=== PATIENT | female | born 1945 | race African-American/Black ===

== ENCOUNTER 2022-10-16 15:17 | Inpatient (IN) | payer MEDICARE, MEDICAID ==
[~2022-10-16] VITALS: Ht 160 cm; Wt 81.2 kg
[2022-10-16 16:26] LABS: CHLORIDE 109 mEq/L (98-107)
[2022-10-16 16:30] LABS: BASOPHILS % 0.5 % (0.0-2.0); EOSINOPHILS % 2.4 % (0.0-5.0); HEMATOCRIT. 43.3 % (36.0-48.0); HEMOGLOBIN. 14.6 g/dL (12.0-16.0); LYMPHOCYTES % 29.3 % (20.0-50.0); MEAN CORPUSCULAR VOLUME 100.8 fL (81.0-99.0); MEAN PLATELET VOLUME 7.8 fl (7.4-10.4); MONOCYTES % 10.8 % (2.0-8.0); PLATELET 329 x1000/uL (130-400); RED BLOOD CELL COUNT 4.29 mill/uL (4.2-5.4); RED CELL DISTRIBUTION WIDTH 12.7 % (11.6-14.6)
[2022-10-16] MEDS ORDERED: ASPIRIN 81MG EC TABLET PO ONE (16:30)
[2022-10-16] MEDS ORDERED: ONDANSETRON 4MG ODT PO ONE (19:15)
[2022-10-16] MEDS ORDERED: AMLODIPINE 5MG TABLET PO ONE (21:00)
[2022-10-16] MEDS ORDERED: VERAPAMIL HCL 40MG TABLET PO SCH ×2 (21:00→21:30)
[2022-10-16] MEDS ORDERED: GUAIFENESIN 200MG/10ML SUGAR FREE UDC PO PRN (22:00)
[2022-10-16] MEDS ORDERED: NITROGLYCERIN 0.4MG TABLET SL SL PRN (22:00)
[2022-10-16] MEDS ORDERED: CLONIDINE 0.1MG TABLET PO PRN (22:00)
[2022-10-16] MEDS ORDERED: MAGNESIUM/ALUMINUM HYDROXIDE/SIMETHICONE 30ML UDC PO PRN (22:00)
[2022-10-16] MEDS ORDERED: IPRATROPIUM/ALBUTEROL 0.5-3(2.5)MG/3ML NEB HHN PRN (22:00)
[2022-10-16] MEDS ORDERED: DIPHENHYDRAMINE 50MG/ML VIAL IV PRN (22:00)
[2022-10-16] MEDS ORDERED: ONDANSETRON HCL 4MG/2ML INJ IV PRN (22:00)
[2022-10-16] MEDS ORDERED: DOCUSATE SODIUM 100MG CAPSULE PO PRN (22:00)
[2022-10-17] VITALS (7 sets, daily range): BP systolic 133–172; BP diastolic 70–81
[2022-10-17] MEDS: HYDROCODONE/ACETAMINOPHEN 5/325MG TABLET PO PRN ×2 (00:25→12:40)
[2022-10-17 00:39] LABS: CREATINE KINASE 74 IU/L (26-192); CREATINE KINASE MB FRACTION < 1.0 ng/mL (0.5-3.6); T4 FREE 1.14 ng/dL (0.76-1.46)
[2022-10-17] MEDS ORDERED: ALBUTEROL (0.083%) 2.5MG/3ML NEB HHN PRN ×2 (03:45)
[2022-10-17] MEDS ORDERED: IPRATROPIUM BROMIDE (0.02%) 0.5MG/2.5ML NEB HHN PRN ×2 (03:45)
[2022-10-17 07:15] LABS: BASOPHILS % 0.4 % (0.0-2.0); EOSINOPHILS % 2.4 % (0.0-5.0); HEMATOCRIT. 39.8 % (36.0-48.0); LYMPHOCYTES % 32.4 % (20.0-50.0); MEAN CORPUSCULAR HEMOGLOBIN 36.1 pg (28.0-32.0); MEAN CORPUSCULAR VOLUME 102.5 fL (81.0-99.0); MONOCYTES % 10.2 % (2.0-8.0); NEUTROPHILS % 54.6 % (40.0-76.0); RED BLOOD CELL COUNT 3.88 mill/uL (4.2-5.4); RED CELL DISTRIBUTION WIDTH 12.7 % (11.6-14.6)
[2022-10-17 08:36] LABS: PLATELET 263 x1000/uL (130-400)
[2022-10-17] MEDS ORDERED: ASPIRIN 81MG EC TABLET PO SCH (09:00)
[2022-10-17] MEDS: FAMOTIDINE 20MG TABLET PO SCH ×2 (10:11→20:22)
[2022-10-17] MEDS: ASPIRIN 81MG TABLET PO SCH (10:11)
[2022-10-17] MEDS: AMLODIPINE 10MG TABLET PO SCH (10:12)
[2022-10-17] MEDS: ENOXAPARIN 40MG/0.4ML SYR SUBCUT SCH (10:13)
[2022-10-17] MEDS: LOSARTAN POTASSIUM 25 MG TABLET PO SCH (10:16)
[2022-10-17] MEDS: ACETAMINOPHEN 325MG TABLET PO PRN ×2 (10:16→20:22)
[2022-10-17 10:40] LABS: CHLORIDE 108 mEq/L (98-107)
[2022-10-17 11:12] LABS: CREATINE KINASE 62 IU/L (26-192); CREATINE KINASE MB FRACTION < 1.0 ng/mL (0.5-3.6); HDL CHOLESTEROL 42 mg/dL (40-59); LDL CHOLESTEROL 127 mg/dL (5-100)
[2022-10-17] MEDS ORDERED: METOPROLOL TARTRATE 25MG TABLET PO NR (12:30)
[2022-10-17] MEDS ORDERED: LIDOCAINE HCL 1% 10 MG/ML 10ML VIAL ONE (12:54)
[2022-10-17] MEDS ORDERED: METOPROLOL TARTRATE 5MG/5ML VIAL IV ONE ×2 (14:13→14:15)
[2022-10-17] MEDS ORDERED: LORAZEPAM 2MG/ML CPJ IV NR (14:15)
[2022-10-17] MEDS ORDERED: NITROGLYCERIN SPRAY/4.9GM CAN TL SCH (14:15)
[2022-10-17] MEDS ORDERED: METOPROLOL TARTRATE 5MG/5ML VIAL IV NR (14:30)
[2022-10-17] MEDS ORDERED: IOHEXOL-350 100 ML BOTTLE ONE (14:39)
[2022-10-17] MEDS ORDERED: NALOXONE HCL 0.4MG/ML VIAL IV PRN (18:30)
[2022-10-17] MEDS: CARVEDILOL 3.125 MG TABLET PO SCH (20:26)
[2022-10-18] VITALS: BP_SYST 107; BP_SYST 124; BP_DIAS 62; BP_DIAS 76
[2022-10-18 04:00] VITALS: BP_SYST 120
[2022-10-18] MEDS: ACETAMINOPHEN 325MG TABLET PO PRN ×2 (05:53→21:16)
[2022-10-18 06:42] LABS: BASOPHILS % 0.4 % (0.0-2.0); EOSINOPHILS % 2.1 % (0.0-5.0); HEMATOCRIT. 39.1 % (36.0-48.0); HEMOGLOBIN. 13.2 g/dL (12.0-16.0); LYMPHOCYTES % 30.4 % (20.0-50.0); MEAN CORPUSCULAR HEMOGLOBIN 34.1 pg (28.0-32.0); MEAN CORPUSCULAR VOLUME 101.3 fL (81.0-99.0); MEAN PLATELET VOLUME 7.7 fl (7.4-10.4); MONOCYTES % 10.5 % (2.0-8.0); NEUTROPHILS % 56.6 % (40.0-76.0); PLATELET 272 x1000/uL (130-400); RED BLOOD CELL COUNT 3.86 mill/uL (4.2-5.4); RED CELL DISTRIBUTION WIDTH 12.6 % (11.6-14.6)
[2022-10-18 08:00] VITALS: BP 153/74
[2022-10-18 08:07] LABS: CHLORIDE 106 mEq/L (98-107)
[2022-10-18] MEDS ORDERED: LIDOCAINE HCL/PF 1% 10 MG/ML 5ML VIAL ONE (08:28)
[2022-10-18] MEDS ORDERED: HEPARIN 1000 UNITS/ML 10ML ONE (08:28)
[2022-10-18] MEDS ORDERED: IODIXANOL 320MG/ML 100 ML BOTTLE IV ONE (08:28)
[2022-10-18] MEDS ORDERED: DIPHENHYDRAMINE 50MG/ML VIAL ONE (08:51)
[2022-10-18] MEDS ORDERED: VERAPAMIL HCL 2.5 MG/1 ML 2ML VIAL IV ONE (08:51)
[2022-10-18] MEDS ORDERED: FENTANYL CITRATE/PF 50MCG/ML 2ML VIAL ONE (08:51)
[2022-10-18] MEDS ORDERED: MIDAZOLAM HCL 2 MG/2 ML VIAL ONE ×2 (08:51→09:16)
[2022-10-18] MEDS: ASPIRIN 81MG TABLET PO SCH (09:00)
[2022-10-18] MEDS: ENOXAPARIN 40MG/0.4ML SYR SUBCUT SCH (09:00)
[2022-10-18] MEDS ORDERED: CLOPIDOGREL 75MG TABLET ONE (09:41)
[2022-10-18] MEDS ORDERED: ASPIRIN 325MG EC TABLET PO ONE (09:41)
[2022-10-18] MEDS ORDERED: ATROPINE SULFATE 1MG/10ML SYR IV PRN (10:00)
[2022-10-18] MEDS ORDERED: ACETAMINOPHEN 325MG TABLET PO PRN (10:00)
[2022-10-18] MEDS ORDERED: SODIUM CHLORIDE 0.45% 500 ML IV ONE (10:00)
[2022-10-18 12:00] VITALS: BP 151/81
[2022-10-18] MEDS: LOSARTAN POTASSIUM 25 MG TABLET PO SCH (14:16)
[2022-10-18] MEDS: FAMOTIDINE 20MG TABLET PO SCH ×2 (14:16→20:59)
[2022-10-18] MEDS: AMLODIPINE 10MG TABLET PO SCH (14:16)
[2022-10-18] MEDS: CARVEDILOL 3.125 MG TABLET PO SCH ×2 (14:16→20:59)
[2022-10-18] MEDS: HYDROCODONE/ACETAMINOPHEN 5/325MG TABLET PO PRN (15:33)
[2022-10-18 16:00] VITALS: BP 145/86
[2022-10-18] MEDS ORDERED: GABA-532 PO (16:09)
[2022-10-18] MEDS: GABAPENTIN 100MG CAPSULE PO SCH (17:27)
[2022-10-18 20:00] VITALS: BP 169/77
[2022-10-18] MEDS: ATORVASTATIN CALCIUM 20MG TABLET PO SCH (20:59)
[2022-10-18] MEDS: GABAPENTIN 300MG CAPSULE PO SCH (20:59)
[2022-10-19] VITALS: BP 144/70
[2022-10-19 04:00] VITALS: BP 124/65
[2022-10-19 07:14] LABS: BASOPHILS % 0.4 % (0.0-2.0); EOSINOPHILS % 1.9 % (0.0-5.0); HEMATOCRIT. 38.2 % (36.0-48.0); HEMOGLOBIN. 12.7 g/dL (12.0-16.0); LYMPHOCYTES % 21.8 % (20.0-50.0); MEAN CORPUSCULAR HEMOGLOBIN 33.6 pg (28.0-32.0); MEAN CORPUSCULAR VOLUME 101.2 fL (81.0-99.0); MEAN PLATELET VOLUME 7.6 fl (7.4-10.4); MONOCYTES % 11.5 % (2.0-8.0); NEUTROPHILS % 64.4 % (40.0-76.0); PLATELET 274 x1000/uL (130-400); RED BLOOD CELL COUNT 3.77 mill/uL (4.2-5.4); RED CELL DISTRIBUTION WIDTH 12.5 % (11.6-14.6)
[2022-10-19 07:35] LABS: CHLORIDE 106 mEq/L (98-107)
[2022-10-19 07:43] LABS: PHOSPHORUS 3.2 mg/dL (2.5-4.9)
[2022-10-19 07:58] VITALS: BP 130/76
[2022-10-19] MEDS ORDERED: ASPIRIN 81MG TABLET PO SCH (09:00)
[2022-10-19] MEDS: LOSARTAN POTASSIUM 25 MG TABLET PO SCH (09:45)
[2022-10-19] MEDS: AMLODIPINE 10MG TABLET PO SCH (09:45)
[2022-10-19] MEDS: GABAPENTIN 100MG CAPSULE PO SCH ×2 (09:45→17:58)
[2022-10-19] MEDS: FAMOTIDINE 20MG TABLET PO SCH ×2 (09:45→21:56)
[2022-10-19] MEDS: CLOPIDOGREL 75MG TABLET PO SCH (09:45)
[2022-10-19] MEDS: ASPIRIN 81MG TABLET PO SCH (09:45)
[2022-10-19] MEDS: CARVEDILOL 3.125 MG TABLET PO SCH ×2 (09:45→21:56)
[2022-10-19] MEDS ORDERED: COR3 PO (11:21)
[2022-10-19] MEDS ORDERED: CLOP75TA15 PO (11:21)
[2022-10-19] MEDS ORDERED: ASPI-1160 PO (11:21)
[2022-10-19] MEDS ORDERED: GABA-532 PO (11:21)
[2022-10-19] MEDS ORDERED: AMLO10TA80 PO (11:21)
[2022-10-19] MEDS ORDERED: LOSA25TA3 PO (11:21)
[2022-10-19] MEDS ORDERED: ATOR20TA PO (11:21)
[2022-10-19 12:00] VITALS: BP 153/80
[2022-10-19] MEDS: ACETAMINOPHEN 325MG TABLET PO PRN ×2 (12:50→21:55)
[2022-10-19 16:00] VITALS: BP 136/83
[2022-10-19 20:00] VITALS: BP 137/83
[2022-10-19] MEDS ORDERED: HYDROXYZINE 25MG TABLET PO PRN (21:30)
[2022-10-19] MEDS: GABAPENTIN 300MG CAPSULE PO SCH (21:56)
[2022-10-19] MEDS: ATORVASTATIN CALCIUM 20MG TABLET PO SCH (21:57)
[2022-10-20] VITALS: BP 138/76
[2022-10-20 04:00] VITALS: BP 109/63
[2022-10-20 08:00] VITALS: BP 170/79
[2022-10-20] MEDS: CLOPIDOGREL 75MG TABLET PO SCH (08:08)
[2022-10-20] MEDS: AMLODIPINE 10MG TABLET PO SCH (08:09)
[2022-10-20] MEDS: GABAPENTIN 100MG CAPSULE PO SCH ×2 (08:09→17:57)
[2022-10-20] MEDS: CARVEDILOL 3.125 MG TABLET PO SCH (08:09)
[2022-10-20] MEDS: ASPIRIN 81MG TABLET PO SCH (08:09)
[2022-10-20] MEDS: FAMOTIDINE 20MG TABLET PO SCH (08:09)
[2022-10-20] MEDS: LOSARTAN POTASSIUM 25 MG TABLET PO SCH (08:09)
[2022-10-20 12:00] VITALS: BP 144/78
[2022-10-20 13:15] VITALS: BP 144/78
[2022-10-20 16:00] VITALS: BP 135/84
[2022-10-20] MEDS: ACETAMINOPHEN 325MG TABLET PO PRN (16:54)
== END 2022-10-20 18:35 | disposition home health service (06) | DRG 246 ==
LOC: ER 15:17 → MICUSO 20:50 → EDBEDREQTM 20:55 → EDBEDREQ 20:55 → SUPCPDRO 21:27 → 7EST 10-17 03:28 → 3WST 10-18 10:13
PROVIDERS: ADMIT Internal Medicine; ATTEND Internal Medicine
PROC: 02HV33Z Insertion of Infusion Device into Superior Vena Cava, Percutaneous Approach (ICD-10-PCS; 2022-10-17)
PROC: B548ZZA Ultrasonography of Superior Vena Cava, Guidance (ICD-10-PCS; 2022-10-17)
PROC: B5181ZA Fluoroscopy of Superior Vena Cava using Low Osmolar Contrast, Guidance (ICD-10-PCS; 2022-10-17)
PROC: 027035Z Dilation of Coronary Artery, One Artery with Two Drug-eluting Intraluminal Devices, Percutaneous Approach (ICD-10-PCS; principal; 2022-10-18)
PROC: 4A023N7 Measurement of Cardiac Sampling and Pressure, Left Heart, Percutaneous Approach (ICD-10-PCS; 2022-10-18)
PROC: B211YZZ Fluoroscopy of Multiple Coronary Arteries using Other Contrast (ICD-10-PCS; 2022-10-18)
DX: I11.0 Hypertensive heart disease with heart failure (principal); I21.A1 Myocardial infarction type 2; I50.41 Acute combined systolic (congestive) and diastolic (congestive) heart failure; I25.110 Atherosclerotic heart disease of native coronary artery with unstable angina pectoris; Z20.822 Contact with and (suspected) exposure to COVID-19; I42.9 Cardiomyopathy, unspecified; E78.5 Hyperlipidemia, unspecified; E11.42 Type 2 diabetes mellitus with diabetic polyneuropathy; K59.00 Constipation, unspecified; Z82.49 Family history of ischemic heart disease and other diseases of the circulatory system; Z86.73 Personal history of transient ischemic attack (TIA), and cerebral infarction without residual deficits; Z79.4 Long term (current) use of insulin; Z63.4 Disappearance and death of family member
CPT/HCPCS: 36415; 36573; 71045; 75571; 80048; 80053; 80061; 82550; 82553; 82962; 83036; 83735; 83880; 84100; 84439; 84443; 84484; 85025; 85347; 85379; 87426; 92928; 93005; 93306; 93458; 93923; 93970; 97166; 99285; C1725; C1769; C1874; C1887; C1893; J1200; J1644; J1650; J2250; J3010; J3490; Q0162; Q9967